=== PATIENT | female | born 1985 | race Two or more races ===

== ENCOUNTER → 2024-04-29 | Outpatient (CLI) | payer MEDICAID, SELFPAY ==
--- NOTE | 2024-04-29 08:45 | XR_ITS ---
Examination: Breast ultrasound complete, bilateral Date and time of exam: April 29, 2024 0910 hrs. Indications: Mammogram October 31, 2023 4 mm focal asymmetry upper left breast 8.8 cm from the nipple, family history breast cancer Technique: Real-time grayscale ultrasonographic imaging bilateral breasts, including all 4 quadrants as well as nipple retroareolar and axillary regions. Findings: Sonographic images right breast No cystic or solid mass Sonographic images left breast 3:00 cyst 4 x 5 mm No solid nodules Impression: BI-RADS Category 2: Benign findings
--- NOTE | 2024-04-29 09:45 | XR_ITS ---
Examination: Diagnostic digital mammography, unilateral, left Computer aided detection 3-D breast Tomosynthesis, unilateral Date and time of exam: April 29, 2024 0924 hrs. Indications: Mammogram October 31, 2023 4 mm focal asymmetry upper left breast MLO view, 8.8 cm from the nipple Technique: Nonmagnified MLO, CC views of the left breast have been obtained, reconstructed from 3-D Tomosynthesis images. R2 computer aided detection program utilized for evaluation of suspicious masses and/or abnormal calcifications. 3-D Tomosynthesis images obtained. Findings: The breast is heterogeneously dense, which may obscure small masses No suspicious masses identified on the spot compression views Impression: BI-RADS category 2: Benign findings Return to yearly follow-up mammography
== END | disposition home or self-care (01) ==
PROVIDERS: PCP Nurse Practitioner Family; Referring Provider Nurse Practitioner Family; Visit Provider Nurse Practitioner Family
DX: R92.322 Mammographic fibroglandular density, left breast (principal); N60.02 Solitary cyst of left breast
CPT/HCPCS: 76641; 77061; 77065; G0279